=== PATIENT | female | born 1965 | race Caucasian/White ===

== ENCOUNTER 2018-11-12 17:18 | Emergency (ER) | payer BC, OTHER ==
--- NOTE | 2018-11-12 17:46 | ED Physician Documentation ---
PD HPI ABD PAIN - Stated complaint Stated Complaint: ELEVATED SUGAR - Chief complaint Chief Complaint: Abd Pain - History obtained from History obtained from: Patient - History of Present Illness Timing - onset: Today (was having some dysuria the past 1-2 days and called PCP clinic. They had her bring Urine sample in and the result showed large glucose. So they called her to go to the ER directly. She says she has not noted any polyuria, general fatigue, recent weight change. No known diabetes.) Quality: Other (dysuria for couple days) Location: Suprapubic Associated symptoms: Dysuria, Other (has had malaise, congestion, cough for few days, feeling like has a cold.). No: Fever, Nausea, Vomiting, Diarrhea, Constipation, Loss of appetite, Weight loss Review of Systems Constitutional: reports: Fever (for few days), Myalgias Nose: reports: Congestion Throat: denies: Sore throat Respiratory: reports: Cough GI: reports: Nausea (mild with less appetite for few days). denies: Abdominal Pain, Vomiting, Diarrhea : reports: Dysuria PD PAST MEDICAL HISTORY - Past Medical History Cardiovascular: None Respiratory: None Neuro: None Endocrine/Autoimmune: None - Present Medications Home Medications: Ambulatory Orders Medication Instructions Recorded Confirmed Cephalexin [Keflex] 500 mg PO TID #15 capsule 11/12/18 Metformin HCl 500 mg PO BID #30 tablet 11/12/18 Potassium Chloride 10 meq PO DAILY #10 tablet.er 11/12/18 - Allergies Allergies/Adverse Reactions: Allergies Allergy/AdvReac Type Severity Reaction Status Date / Time No Known Drug Allergies Allergy Verified 11/12/18 17:35 PD ED PE NORMAL - Vitals Vital signs reviewed: Yes - General General: Alert and oriented X 3, Well developed/nourished - HEENT HEENT: Ears normal, Pharynx benign - Neck Neck: Supple, no meningeal sign, No adenopathy - Cardiac Cardiac: RRR, No murmur - Respiratory Respiratory: Clear bilaterally - Abdomen Abdomen: Normal bowel sounds, Soft, Non tender - Back Back: No CVA TTP - Derm Derm: Normal color, Warm and dry - Neuro Neuro: Alert and oriented X 3, No motor deficit, Normal speech Results - Vitals Vitals: Oxygen O2 Source Room air - Labs Labs: Laboratory Tests 11/12/18 11/12/18 11/12/18 17:40 18:50 18:50 WBC 6.8 RBC 4.41 Hgb 11.9 L Hct 36.5 L MCV 82.6 MCH 26.9 L MCHC 32.6 RDW 16.4 H Plt Count 302 MPV 8.1 Neut # (Auto) 3.8 Lymph # (Auto) 2.2 [place] # (Auto) 0.7 Eos # (Auto) 0.0 Baso # (Auto) 0.1 Absolute Nucleated RBC 0.00 Nucleated RBC % 0.1 Sodium 130 L Potassium 3.3 L Chloride 89 L Carbon Dioxide 27 Anion Gap 14.0 H BUN 12 Creatinine 0.7 Estimated GFR (MDRD) 87 L Glucose 247 H POC Whole Bld Glucose 256 H Glycated Hemoglobin Estim Average Glucose Calcium 8.6 Magnesium 1.7 Total Bilirubin 0.9 AST 34 ALT 32 Alkaline Phosphatase 117 Total Protein 7.3 Albumin 3.3 Globulin 4.0 Albumin/Globulin Ratio 0.8 L Lipase 27 Urine Color Urine Clarity Urine pH Ur Specific [place] Urine Protein Urine Glucose (UA) Urine Ketones Urine Occult Blood Urine Nitrite Urine Bilirubin Urine Urobilinogen Ur Leukocyte Esterase Urine RBC Urine WBC Ur Squamous Epith Cells Urine Bacteria Ur Microscopic Review Urine Culture Comments 11/12/18 11/12/18 18:50 19:25 WBC RBC Hgb Hct MCV MCH MCHC RDW Plt Count MPV Neut # (Auto) Lymph # (Auto) [place] # (Auto) Eos # (Auto) Baso # (Auto) Absolute Nucleated RBC Nucleated RBC % Sodium Potassium Chloride Carbon Dioxide Anion Gap BUN Creatinine Estimated GFR (MDRD) Glucose POC Whole Bld Glucose Glycated Hemoglobin 10.9 H Estim Average Glucose 266 H Calcium Magnesium Total Bilirubin AST ALT Alkaline Phosphatase Total Protein Albumin Globulin Albumin/Globulin Ratio Lipase Urine Color LT. YELLOW Urine Clarity CLEAR Urine pH 6.5 Ur Specific [place] <=1.005 Urine Protein NEGATIVE Urine Glucose (UA) NEGATIVE Urine Ketones NEGATIVE Urine Occult Blood TRACE-LYSE Urine Nitrite NEGATIVE Urine Bilirubin NEGATIVE Urine Urobilinogen 0.2 (NORMAL) Ur Leukocyte Esterase SMALL H Urine RBC 0-5 Urine WBC 0-3 Ur Squamous Epith Cells MOD Squamous H Urine Bacteria None Seen Ur Microscopic Review INDICATED Urine Culture Comments NOT INDICATED PD MEDICAL DECISION MAKING - ED course Complexity details: considered differential (sugar metabolism may be off with current illness, but the sugar elevation to that level would suggest diabetes (she is not on steroids or such). Can start her on oral med. Likely has been elevated for long time and just not known. Will need to get glucometer and teaching from PCP clinic. ), d/w patient Departure - Departure Disposition: 01 Home, Self Care Clinical Impression: Flu-like symptoms, Hyperglycemia UTI (urinary tract infection) Qualifiers: Urinary tract infection type: acute cystitis Hematuria presence: without hematuria Qualified Code(s): N30.00 - Acute cystitis without hematuria Condition: Stable Record reviewed to determine appropriate education?: Yes Instructions: ED UTI Cystitis Female, ED Hyperglycemia New Susp Diabetes Follow-Up: Carlito Dove MD [Primary Care Provider] - Prescriptions: Cephalexin [Keflex] 500 mg PO TID #15 capsule Metformin HCl 500 mg PO BID #30 tablet Potassium Chloride 10 meq PO DAILY #10 tablet.er Comments: With your blood sugars being in moderately high as they are, it is probably safe to say there is some level of mild diabetes. You could start oral medications twice daily for that. Follow-up with your primary care tomorrow to see about getting a glucometer to check it over the next several weeks. Your potassium level was a little bit low just as a side note and so take a potassium supplement for a week or so. Your main symptoms sound flulike and should continue to improve. You do have a mild bladder infection and take the cephalexin as directed for 5 days. Follow-up with your primary care. Forms: Activity restrictions Discharge Date/Time: 11/12/18 20:22
[2018-11-12] MEDS ORDERED: metFORMIN 500 MG TABLET PO STA (18:40)
[2018-11-12] MEDS ORDERED: DIPHENOX/ATROPINE 2.5/0.025 MG TABLET PO STA (18:40)
[2018-11-12 19:04] LABS: BASOPHILS # (AUTO) 0.1 10^3/uL (0.0-0.1); BASOPHILS % (AUTO) 1.1 %; EOSINOPHILS % (AUTO) 0.3 %; HGB - HEMOGLOBIN 11.9 g/dL (12.0-16.0); LYMPHOCYTES # (AUTO) 2.2 10^3/uL (1.5-3.5); LYMPHOCYTES % (AUTO) 32.3 %; MEAN CORPUSCULAR HEMOGLOBIN 26.9 pg (27.0-31.0); MEAN CORPUSCULAR HGB CONC 32.6 g/dL (32.0-36.0); MEAN CORPUSCULAR VOLUME 82.6 fL (81.0-99.0); MEAN PLATELET VOLUME 8.1 fL (7.9-10.8); MONOCYTES # (AUTO) 0.7 10^3/uL (0.0-1.0); MONOCYTES % (AUTO) 10.2 %; NEUTROPHILS # (AUTO) 3.8 10^3/uL (1.5-6.6); NEUTROPHILS % (AUTO) 56.1 %; PLT - PLATELET COUNT 302 10^3/uL (130-450); RED BLOOD COUNT 4.41 10^6/uL (4.20-5.40); RED CELL DISTRIBUTION WIDTH 16.4 % (12.0-15.0); WHITE BLOOD COUNT 6.8 x10^3/uL (4.8-10.8)
[2018-11-12 19:21] LABS: ALBUMIN 3.3 g/dL (3.2-5.5); ALBUMIN/GLOBULIN RATIO 0.8 (1.0-2.2); BILIRUBIN,TOTAL 0.9 mg/dL (0.2-1.0); CALCIUM 8.6 mg/dL (8.5-10.3); CREATININE 0.7 mg/dL (0.4-1.0); MAGNESIUM 1.7 mg/dL (1.7-2.8); TOTAL PROTEIN 7.3 g/dL (6.7-8.2)
[2018-11-12] MEDS ORDERED: POTASSIUM BICARB 25 MEQ TABLET PO STA (19:36)
[2018-11-12 19:38] LABS: BILIRUBIN,URINE NEGATIVE (NEGATIVE); CLARITY,URINE CLEAR (CLEAR); GLUCOSE, URINE (UA) NEGATIVE (NEGATIVE); KETONES,URINE (UA) NEGATIVE (NEGATIVE); LEUKOCYTE ESTERASE, URINE SMALL (NEGATIVE); NITRITE,URINE NEGATIVE (NEGATIVE); OCCULT BLOOD,URINE TRACE-LYSE (NEGATIVE); PH,URINE 6.5 PH (5.0-7.5); PROTEIN,URINE NEGATIVE (NEGATIVE); UROBILINOGEN,URINE 0.2 (NORMAL) E.U./dL (NORMAL)
[2018-11-12 19:47] LABS: BACTERIA,URINE None Seen /HPF (None Seen); RBC,URINE 0-5 /HPF (0-5); SQUAMOUS EPITHELIAL CELL,UR MOD Squamous (<= Few)
[2018-11-12 19:50] LABS: HB2 TOTAL 12.8 g/dL; HEMOGLOBIN A1C 1.22 g/dL; HEMOGLOBIN A1C % 10.9 % (4.6-6.2)
[2018-11-12] MEDS ORDERED: cephALEXin 250 MG CAPSULE PO STA (20:03)
[2018-11-12 20:04] VITALS: BP 132/66
== END 2018-11-12 20:22 | disposition home or self-care (01) ==
LOC: ED 17:18
DX: R73.9 Hyperglycemia, unspecified (principal); N30.00 Acute cystitis without hematuria; R05 Cough; R53.81 Other malaise
CPT/HCPCS: 36415; 80053; 81001; 83036; 83690; 83735; 85025; 99283; A9270; 81003; 87086